=== PATIENT | female | born 1945 | race African-American/Black ===

== ENCOUNTER 2016-07-08 11:13 | Emergency (ER) | payer OTHER ==
[2016-07-08 11:28] VITALS: BMI 42.0
--- NOTE | 2016-07-08 12:43 | PDOC ---
History of Present Illness - General History Source: Patient, Old Records Exam Limitations: No Limitations <Aranza Anglin - Last Filed: 07/08/16 15:39> - General History Source: Patient Exam Limitations: No Limitations - History of Present Illness Initial Comments: 07/08/16 11:52 The patient is a 70-year-old woman, with a significant past medical history of borderline hypercholesterolemia, insulin dependent diabetes mellitus, rheumatic fever, heart murmurs and asthma who presents to the emergency department via walk-in for further evaluation of right sided arm pain. No fall, strenuous activity. Patient states that she suddenly felt right sided arm pain with associated numbness, described as her arm feeling "sleepy" today. She did not sleep on her right side. She notes that her arm pain is exacerbated with musculoskeletal maneuvers with a rated 8/10 in severity. She also reports associated neck discomfort. No fevers, chills, cough, shortness of breath, chest pain, lightheadedness, dizziness, abdominal pain, nausea, vomiting, diarrhea. No urinary complaints. Allergies: No Known Drug Allergies. Kewadin. Tomato. Seafood Past Surgical History: Appendectomy Social History: No tobacco, EtOH and recreational drug use. Primary Care Physician: Not On staff. <Katrina Bazzi - Last Filed: 07/08/16 16:33> - General Chief Complaint: Pain Stated Complaint: RT SIDE PAIN Time Seen by Provider: 07/08/16 11:52 Past History - Past Medical History Asthma: Yes Cardiac Disorders: Yes (rheumatic fever, murmur) Diabetes: Yes (iddm) Hypercholesterolemia: Yes - Surgical History Appendectomy: Yes - Psycho/Social/Smoking Cessation Hx Anxiety: No Suicidal Ideation: No Smoking History: Never smoked Have you smoked in the past 12 months: No Information on smoking cessation initiated: No Hx Alcohol Use: No Drug/Substance Use Hx: No Substance Use Type: None <Aranza Anglin - Last Filed: 07/08/16 15:39> <Katrina Bazzi - Last Filed: 07/08/16 16:33> - Past Medical History Allergies/Adverse Reactions: Allergies Allergy/AdvReac Type Severity Reaction Status Date / Time strawberry Allergy Verified 07/08/16 11:23 tomato Allergy Verified 07/08/16 11:23 seafood Allergy Uncoded 07/08/16 11:23 Home Medications: Ambulatory Orders Insulin (Levemir) [Levemir Vial] 50 unit SQ DAILY 07/08/16 Mometasone/Formoterol [Dulera 100 Mcg/5 Mcg Inhaler] 2 inh IH BID PRN 07/08/16 Review of Systems - Review of Systems Able to Perform ROS?: Yes Comments:: 07/08/16 13:11 CONSTITUTIONAL: Absent: fever, chills, diaphoresis, generalized weakness, malaise, loss of appetite HEENT: Absent: rhinorrhea, nasal congestion, throat pain, throat swelling, difficulty swallowing, mouth swelling, ear pain, eye pain, visual Changes CARDIOVASCULAR: Absent: chest pain, syncope, palpitations, irregular heart rate , lightheadedness, peripheral edema RESPIRATORY: Absent: cough, shortness of breath, dyspnea with exertion, orthopnea, wheezing, stridor, hemoptysis GASTROINTESTINAL:Absent: abdominal pain, abdominal distension, nausea, vomiting , diarrhea, constipation, melena, hematochezia GENITOURINARY: Absent: dysuria, frequency, urgency, hesitancy, hematuria, flank pain, genital pain MUSCULOSKELETAL: Absent: myalgia, arthralgia, joint swelling SKIN: Absent: rash, itching, pallor HEMATOLOGIC/IMMUNOLOGIC: Absent: easy bleeding, easy bruising, lymphadenopathy, frequent infections ENDOCRINE:Absent: unexplained weight gain, unexplained weight loss, heat intolerance, cold intolerance NEUROLOGIC: Absent: headache, focal weakness or paresthesias, dizziness, unsteady gait, seizure, mental status changes, bladder or bowel incontinence PSYCHIATRIC: Absent: anxiety, depression, suicidal or homicidal ideation, hallucinations <Katrina Bazzi - Last Filed: 07/08/16 16:33> *Physical Exam - Vital Signs Last Vital Signs Temp Pulse Resp BP Pulse Ox 98.2 F 76 18 154/109 100 07/08/16 11:24 07/08/16 11:24 07/08/16 11:24 07/08/16 11:24 07/08/16 11:24 <Aranza Anglin - Last Filed: 07/08/16 15:39> - Vital Signs Last Vital Signs Temp Pulse Resp BP Pulse Ox 98.2 F 76 18 154/109 100 07/08/16 11:24 07/08/16 11:24 07/08/16 11:24 07/08/16 11:24 07/08/16 11:24 - Physical Exam Comments: 07/08/16 13:11 GENERAL: Well developed, well nourished. Awake and alert. No acute distress. HEENT: Normocephalic, atraumatic. PERRLA, EOMI. No conjunctival pallor. Sclera are non-icteric. Moist mucous membranes. Oropharynx is clear. NECK: Supple. Full ROM. No JVD. CARDIOVASCULAR: Regular rate and rhythm. No murmurs, rubs, or gallops. PULMONARY: No evidence of respiratory distress. Lungs clear to auscultation bilaterally. No wheezing, rales or rhonchi. ABDOMINAL: Soft. Non-tender. Non-distended. No rebound or guarding. No organomegaly. Normoactive bowel sounds. MUSCULOSKELETAL: There is some tenderness in the right trapezius muscle region. No CVA tenderness. EXTREMITIES: No cyanosis. No clubbing. No edema. No calf tenderness. SKIN: Warm and dry. Normal capillary refill. No rashes. No jaundice. NEUROLOGICAL: Alert, awake, appropriate. Cranial nerves 2-12 intact. No motor deficits in the in face, upper extremities and lower extremities. Normoreflexic in the upper and lower extremities. Normal speech. PSYCHIATRIC: Cooperative. Good eye contact. Appropriate mood and affect. <Katrina Bazzi - Last Filed: 07/08/16 16:33> Heart Score/ECG Review #1 ECG reviewed & interpreted by me at: 14:51 General ECG Interpretation: Sinus Rhythm (at 69 bpm.), Normal Rate, Normal Intervals, No acute ischemic changes <Katrina Bazzi - Last Filed: 07/08/16 16:33> ED Treatment Course - LABORATORY CBC & Chemistry Diagram: 07/08/16 12:58 07/08/16 13:00 <Aranza Anglin - Last Filed: 07/08/16 15:39> - LABORATORY CBC & Chemistry Diagram: 07/08/16 12:58 07/08/16 13:00 - RADIOLOGY Radiograph Interpretation: 07/08/16 14:44 EXAM: RAD/CHEST PA LAT Interpreted by Dr. Vinny Casey IMPRESSION: No evidence of widening of the superior mediastinum. Uncoiled thoracic aorta. The cardiac silhouette is not enlarged. No evidence of bulky hilar adenopathy. No lung mass is seen within limitation of examination. Intact visualized osseous structures. <Katrina Bazzi - Last Filed: 07/08/16 16:33> Medical Decision Making - Medical Decision Making 07/08/16 13:21 70-year-old female with history of diabetes, hypercholesterolemia, rheumatic fever and asthma who presents to the emergency Department with complaints of right shoulder pain radiating down the right arm with some numbness of the right hand. There is no chest pain, shortness of breath. She has a non-focal neurologic exam. Differential diagnosis includes but is not limited to: Disc herniation, radicular pain, nerve impingement, atypical presentation of ACS, musculoskeletal strain. Plan: 1. Labs 2. EKG-NSR at 70 bpm, normal axis, intervals and no acute ST-segment changes. 3. CT scan of cervical spine 4. Chest x-ray 5. Observe and reevaluate 07/08/16 15:28 Addendum: labs were reviewed and are noted in the EMR. CT scan of the c-spine shows degenrative changes at multiple levels. Will discharge the patient home. Follow-up with PCP; Return to the ED if Sx persist, worsen or new Sx arise. <Aranza Anglin - Last Filed: 07/08/16 15:39> *DC/Admit/Observation/Transfer - Discharge Dispostion Admit: No - Attestations Physician Attestion: 07/08/16 13:23 I, Dr. Aranza Anglin, attest that the scribes documentation that appears above has been prepared under my direction and personally reviewed by me in its entirety. I confirmed that the note above accurately reflects all work, treatment, procedures, and medical decision-making performed by me. <Aranza Anglin - Last Filed: 07/08/16 15:39> <Katrina Bazzi - Last Filed: 07/08/16 16:33> Diagnosis at time of Disposition: Arm pain, right - Discharge Dispostion Disposition: HOME Condition at time of disposition: Stable - Referrals Referrals: STAFF,NOT ON [Primary Care Provider] - - Patient Instructions Printed Discharge Instructions: DI for Arm Pain Additional Instructions: The CAT scan of your neck shows some degenerative changes of the cervical spine. This may be contributory to your symptoms. Please follow-up with your primary care physician within one week. You may take Tylenol or ibuprofen as needed for the pain. Return to the emergency department if your symptoms persist , worsen, or new symptoms arise.
[2016-07-08 13:17] LABS: BASOPHIL 0.5 % (0-2.0); EOSINOPHIL 3.9 % (0-4.5); MCH 28.6 pg (25.7-33.7); MCHC 33.4 g/dl (32.0-36.0); MEAN CELL VOLUME 85.5 fl (80-96); MEAN PLT VOLUME 7.3 fl (7.5-11.1); NEUTROPHILS 50.5 % (42.8-82.8); PLATELET COUNT 274 K/MM3 (134-434); RDW 13.4 % (11.6-15.6); WHITE BLOOD COUNT 5.1 K/mm3 (4.0-10.0)
[2016-07-08 13:42] LABS: ALBUMIN 3.9 g/dl (3.4-5.0); ANION GAP 11 (8-16); BILIRUBIN,TOTAL 0.5 mg/dL (0.2-1.0); CO2 29 mmol/L (21-32); CREATININE 0.7 mg/dL (0.55-1.02); GLUCOSE,RANDOM 113 mg/dL (74-106); SGOT/AST 20 U/L (15-37); SGPT/ALT 15 U/L (12-78); TOT PROT 8.2 g/dl (6.4-8.2)
[2016-07-08 13:44] LABS: URINE APPEARANCE CLEAR; URINE BILIRUBIN NEGATIVE (NEGATIVE); URINE BLOOD NEGATIVE (NEGATIVE); URINE COLOR LTYELLOW; URINE GLUCOSE (UA) NEGATIVE (NEGATIVE); URINE KETONE NEGATIVE (NEGATIVE); URINE LEUK ESTERASE NEGATIVE (NEGATIVE); URINE NITRITE NEGATIVE (NEGATIVE); URINE PROTEIN NEGATIVE (NEGATIVE); URINE UROBILINOGEN NEGATIVE E.U./dl (0.2-1.0)
[2016-07-08 13:45] LABS: ALK PHOS 73 U/L (45-117)
[2016-07-08] MEDS ORDERED: IBUPROFEN 400 MG TABLET (FP) PO ONE ×2 (14:45→15:47)
[2016-07-08 15:17] LABS: TROPONIN I < 0.02 ng/ml (0.00-0.05)
[2016-07-08 16:12] VITALS: BP 147/67; PULSE 67; TEMP 97.8
--- NOTE | 2016-07-09 13:26 | EKG ---
Test Reason : Blood Pressure : / mmHG Vent. Rate : 069 BPM Atrial Rate : 069 BPM P-R Int : 156 ms QRS Dur : 082 ms QT Int : 424 ms P-R-T Axes : 046 011 040 degrees QTc Int : 454 ms NORMAL SINUS RHYTHM NORMAL ECG NO PREVIOUS ECGS AVAILABLE Confirmed by SHAILA HUGHES, SILVIANO ([id number]) on 07/09/2016 1:26:15 PM Referred By: Confirmed By:SILVIANO LINTON MD
== END 2016-07-08 16:12 | disposition home or self-care (01) ==
LOC: JER 11:13
DX: M79.601 Pain in right arm (principal); E78.00 Pure hypercholesterolemia, unspecified; E11.9 Type 2 diabetes mellitus without complications; Z79.4 Long term (current) use of insulin; J45.909 Unspecified asthma, uncomplicated; R01.1 Cardiac murmur, unspecified
CPT/HCPCS: 36415; 71020-TC; 72125-TC; 80053; 81003; 82550; 84484; 85025; 93005; 93010; 99283-25